=== PATIENT | male | born 1985 | race Caucasian/White ===

== ENCOUNTER 2021-12-27 07:11 | Emergency (ER) | payer OTHER ==
[~2021-12-27 07:11] MED LIST: ALLOPURINOL100 MG PO; CIPRO500 MG PO; FLOMAX 0.4 MG0.4 MG PO; KETOROLAC TROME10 MG PO; ROBAXIN750 MG PO; VOLTAREN **OUT75 MG PO
[2021-12-27 09:02] LABS: BASOPHIL 0.3 % (0-2); HCT 49.4 % (42.0-52.0); HGB 15.9 g/dl (13.2-18.0); LYMPHOCYTE 14.9 % (15-48); MCH 29.7 pg (25.0-31.0); MCHC 32.2 g/dL (32.0-36.0); MCV 92.2 fL (78.0-100.0); MONOCYTE 4.2 % (0-12); MPV 8.9 fL (6.0-9.5); NEUTROPHIL 79.2 % (41-80); NRBC 0; PLT 247 K/uL (150-400); RBC 5.36 M/uL (4.70-6.00); RDW 12.9 % (11.5-14.0); WBC 12.6 K/uL (4.0-10.5)
[2021-12-27 09:10] LABS: ALBUMIN 4.3 g/dL (3.4-5.0); BILIRUBIN - TOTAL 0.3 mg/dL (0.2-1.0); BUN/CREAT RATIO (CALC) 16.7 RATIO; CREATININE 0.78 mg/dL (0.67-1.17); GLOBULIN (CALCULATION) 3.3 g/dL; POTASSIUM 4.3 mmol/L (3.5-5.1); TOTAL PROTEIN 7.6 g/dL (6.4-8.2)
[2021-12-27 09:54] LABS: BILIRUBIN NEGATIVE (NEGATIVE); BLOOD 3+ Ery/uL (NEGATIVE); CLARITY CLEAR (CLEAR); COLOR YELLOW (YELLOW); GLUCOSE (U) NORMAL (NORMAL); LEUKOCYTES NEGATIVE Leu/uL (NEGATIVE); NITRITE NEGATIVE (NEGATIVE); PROTEIN TRACE (LOW) mg/dL (NEGATIVE); UROBILINOGEN 0.2 mg/dL (0.2-1.0)
[2021-12-27 10:21] LABS: MUCOUS MODERATE; URINARY RBC TNTC
[2021-12-27] MEDS ORDERED: NORCO 5-325 TA1 EACH PO (10:21)
[2021-12-27] MEDS ORDERED: FLOMAX0.4 MG PO (10:21)
[2021-12-27] MEDS ORDERED: NAPROXEN500 MG PO (10:21)
[2021-12-27 10:24] LABS: BACTERIA TRACE
== END 2021-12-27 11:15 | disposition home or self-care (01) ==
LOC: FER 07:11
PROVIDERS: Emergency Medicine
DX: N13.2 Hydronephrosis with renal and ureteral calculous obstruction (principal); F17.210 Nicotine dependence, cigarettes, uncomplicated; Z28.310 Unvaccinated for COVID-19
CPT/HCPCS: 36415; 80053; 81001; 85025